=== PATIENT | female | born 1945 ===

== ENCOUNTER 2019-10-05 11:58 | Inpatient (IN) | payer OTHER ==
[~2019-10-05] VITALS: Ht 177.8 cm; Wt 61.2 kg
[~2019-10-05 11:58] MED LIST: ADALAT CC30 MG PO; APRESOLINE 10MG10 MG PO; CALCIUM600 MG PO; ESTAZOLAM2 MG PO; FOLIC ACID1 MG PO; GABAPENTIN PO; LOSARTAN-HCTZ1 EAC2 PO; MAXIMUM D3325 MCG PO; OMEPRAZOLE MAGN20 MG PO; SYNTHROID150 MCG PO; TOPROL XL50 M1 PO; TRAZODONE HCL150 MG PO; [UNRECOGNIZED DRUG - OTHER] PO
[2019-10-11] MEDS ORDERED: OMEPRAZOLE20 MG PO (10:46)
[2019-10-11] MEDS ORDERED: GABAPENTIN800 M1 (10:46)
[2019-10-11] MEDS ORDERED: ATORVASTATIN CA20 MG PO (10:46)
[2019-10-11] MEDS ORDERED: CALCIUM 600 WI1 EACH PO (10:47)
[2019-10-11] MEDS ORDERED: LEVO-T100 MCG (10:47)
[2019-10-11] MEDS ORDERED: VITAMIN B-125000 MCG SL (10:47)
[2019-10-11] MEDS ORDERED: DOLOGEN CAPLET1 EACH (10:50)
[2019-10-13] MEDS ORDERED: OXYC1TAB9 PO (07:51)
[2019-10-13] MEDS ORDERED: BACTRIM DS TAB1 EACH PO (07:51)
[2019-10-13] MEDS ORDERED: INTEGRA PLUS C1 EACH PO (07:51)
[2019-10-13] MEDS ORDERED: XARELTO10 MG PO (07:51)
== END 2019-10-14 22:49 | DRG 470 ==
LOC: SURH 10-11 07:50 → O/R 10-11 07:50 → SURH 10-11 16:30 → O/R 10-11 17:12 → SURH 10-11 19:49
PROVIDERS: ADMIT Orthopaedic Surgery Sports Medicine; ATTEND Orthopaedic Surgery Sports Medicine
PROC: 0SRD0J9 Replacement of Left Knee Joint with Synthetic Substitute, Cemented, Open Approach (ICD-10-PCS; principal; 2019-10-11 08:15)
DX: M17.12 Unilateral primary osteoarthritis, left knee (principal); I10 Essential (primary) hypertension; E03.8 Other specified hypothyroidism